=== PATIENT | female | born 1975 | race Hispanic/Latino ===

== ENCOUNTER 2024-11-10 12:58 | Outpatient (CLI) | payer BC ==
[2024-11-10 13:51] LABS: Hematocrit 37.9 % (34.9-44.5); Hemoglobin 12.7 g/dL (12.0-15.5); Mean Corpuscular HGB CONC 33.5 g/dL (32.0-36.0); Mean Corpuscular Hemoglobin 31.4 pg (27.0-33.0); Mean Corpuscular Volume 93.8 fL (81.6-98.3); Mean Platelet Volume 10.7 fL (7.4-10.4); Platelet Count 188 10x3/uL (150-450); RBC Distribution Width 12.4 % (11.5-14.5); Red Blood Cell (RBC) Count 4.04 10x6/uL (3.90-5.03); White Blood Cell (WBC) Count 7.3 10x3/uL (3.5-10.5)
[2024-11-10 14:08] LABS: Anion Gap 15 mmol/L (10-20); BUN (Urea Nitrogen) 11 mg/dL (7.0-18.7); Calc. Creatinine Clearance 0 mL/min (70-130); Calcium 9.8 mg/dL (7.8-10.44); Carbon Dioxide 24 mmol/L (22-29); Chloride 101 mmol/L (98-107); Estimated GFR 107; Glucose 114 mg/dL (70-105); Potassium 4.2 mmol/L (3.5-5.1); Sodium 136 mmol/L (136-145)
[2024-11-10 20:08] LABS: Hemoglobin A1c 6.4 % (4.0-6.0)
== END 2024-11-10 12:59 | disposition home or self-care (01) ==
LOC: CSHLAB 12:58
PROVIDERS: ATTEND Specialist
DX: Z01.818 Encounter for other preprocedural examination (principal); K63.5 Polyp of colon
CPT/HCPCS: 80048; 83036; 85027; 93005; 93010

== ENCOUNTER 2024-11-10 13:00 | Inpatient (IN) | payer BC ==
[2024-11-15] MEDS ORDERED: Ketorolac Tromethamine 30 MG (1 mL) VIAL ONE (11:04)
[2024-11-15] MEDS ORDERED: Acetaminophen 500 MG TAB ONE (11:05)
[2024-11-15] MEDS ORDERED: Bupivacaine/Epinephrine 0.25% 30 ML VIAL ONE (11:29)
[2024-11-15] MEDS ORDERED: Lidocaine 1% (PF) 30 ML VIAL ONE (11:29)
[2024-11-15] MEDS ORDERED: Lidocaine 1% w/Epinephrine 1:200K 30 ML VIAL ONE ×2 (11:34→13:33)
[2024-11-15] MEDS ORDERED: Midazolam HCl 2 mg/2 ml Vial ONE (11:46)
[2024-11-15] MEDS ORDERED: Ropivacaine 0.5% HCl/PF (150 MG/30 ML VIAL) ONE (11:46)
[2024-11-15] MEDS ORDERED: EPINEPHrine 1 MG/ML VIAL ONE (11:47)
[2024-11-15] MEDS ORDERED: fentaNYL 50 mcg/mL 1 mL Vial ONE ×4 (11:47→15:39)
[2024-11-15] MEDS ORDERED: Ropivacaine 0.2% HCl/PF 20 ML ONE (11:48)
[2024-11-15] MEDS ORDERED: Lidocaine 1% PF 5 ML VIAL ONE ×2 (11:48→12:29)
[2024-11-15] MEDS ORDERED: ceFOXitin 1 GM VIAL ONE (12:04)
[2024-11-15] MEDS ORDERED: PROPOFOL 20 ML ONE (12:28)
[2024-11-15] MEDS ORDERED: Rocuronium Bromide 10 MG/ML (10ML VIAL) ONE (12:29)
[2024-11-15] MEDS ORDERED: Ondansetron PF 4 MG/2 ML Vial ONE (14:47)
[2024-11-15] MEDS ORDERED: SUGAMMADEX SODIUM 200 MG/2 ML VIAL ONE (14:47)
[2024-11-15] MEDS ORDERED: Morphine 4 MG/ML VIAL SLOW IVP PRN (16:57)
[2024-11-15] MEDS ORDERED: hydrALAZINE 20 MG/ML VIAL SLOW IVP PRN (16:57)
[2024-11-15] MEDS ORDERED: Ipratropium/Albuterol 3 ML NEB NEB PRN (16:57)
[2024-11-15] MEDS ORDERED: Insulin Regular, Human 100 UNIT/ML 10 ML VIAL SC PRN (16:57)
[2024-11-15] MEDS ORDERED: Promethazine HCl 25 MG/ML VIAL IM PRN (16:57)
[2024-11-15] MEDS ORDERED: Ondansetron PF 4 MG/2 ML Vial IVP PRN (16:57)
[2024-11-15] MEDS: Ketorolac Tromethamine 30 MG (1 mL) VIAL IVP SCH (17:41)
[2024-11-15] MEDS: 1/2 NS w/Potassium 20 mEq 1,000 ML IV SCH (17:41)
[2024-11-15 19:40] VITALS: BMI 41.4
[2024-11-15] MEDS: Famotidine/PF 20 mg/2ml Vial SLOW IVP SCH (20:08)
[2024-11-15] MEDS: Morphine 2 MG/ML VIAL SLOW IVP PRN (20:47)
[2024-11-15] MEDS: HYDROcodone/Acetaminophen 7.5/325 mg Tablet PO PRN (22:10)
[2024-11-15] MEDS: Famotidine 20 MG TAB PO SCH (22:16)
[2024-11-16 04:01] LABS: #Basophils 0.01 10x3/uL (0.0-0.2); #Eosinophils 0.04 10x3/uL (0.0-0.5); #Monocytes 0.48 10x3/uL (0.0-1.1); #Neutrophils 5.07 10x3/uL (1.5-8.4); %Basophils 0.1 % (0.0-2.0); %Eosinophils 0.5 % (0.0-6.0); %Lymphocytes 22.6 % (18.0-47.0); %Monocytes 6.6 % (0.0-10.0); %Neutrophils 69.7 % (40.0-75.0); Hematocrit 28.7 % (34.9-44.5); Mean Corpuscular HGB CONC 34.8 g/dL (32.0-36.0); Mean Corpuscular Hemoglobin 33.1 pg (27.0-33.0); Mean Platelet Volume 10.6 fL (7.4-10.4); Platelet Count 136 10x3/uL (150-450); RBC Distribution Width 12.4 % (11.5-14.5); Red Blood Cell (RBC) Count 3.02 10x6/uL (3.90-5.03); White Blood Cell (WBC) Count 7.2 10x3/uL (3.5-10.5)
[2024-11-16 04:02] LABS: Anion Gap 13 mmol/L (10-20); BUN (Urea Nitrogen) 4 mg/dL (7.0-18.7); Calc. Creatinine Clearance 171 mL/min (70-130); Calcium 7.7 mg/dL (7.8-10.44); Carbon Dioxide 21 mmol/L (22-29); Chloride 105 mmol/L (98-107); Estimated GFR 110; Glucose 139 mg/dL (70-105); Potassium 3.8 mmol/L (3.5-5.1); Sodium 135 mmol/L (136-145)
[2024-11-16] MEDS: HYDROcodone/Acetaminophen 7.5/325 mg Tablet PO PRN (08:33)
[2024-11-16] MEDS: Enoxaparin 40 MG (0.4 mL) SYRINGE SC SCH (08:33)
[2024-11-16] MEDS: 1/2 NS w/Potassium 20 mEq 1,000 ML IV SCH (10:34)
[2024-11-17 12:21] VITALS: BP 136/72; TEMP 97.9
== END 2024-11-17 13:45 | disposition home or self-care (01) | DRG 330 ==
LOC: CSHTELE 11-15 10:25
PROVIDERS: ADMIT Specialist; ATTEND Specialist
PROC: 0DTF4ZG Resection of Right Large Intestine, Percutaneous Endoscopic Approach, Hand-Assisted (ICD-10-PCS; principal; 2024-11-15)
PROC: 3E033XZ Introduction of Vasopressor into Peripheral Vein, Percutaneous Approach (ICD-10-PCS; 2024-11-15)
DX: K63.5 Polyp of colon (principal); Z68.41 Body mass index [BMI] 40.0-44.9, adult; E66.01 Morbid (severe) obesity due to excess calories; E78.00 Pure hypercholesterolemia, unspecified; Z79.899 Other long term (current) drug therapy; Z98.891 History of uterine scar from previous surgery; Z98.51 Tubal ligation status; Z90.49 Acquired absence of other specified parts of digestive tract
CPT/HCPCS: 36415; 36416; 80048; 85025; 88309; A4649; J0171; J0694; J1650; J1885; J2250; J2272; J2405; J2704; J2795; J3010; J3480; J3490